=== PATIENT | female | born 1965 | race American Indian/Alaskan Native ===

== ENCOUNTER 2017-04-06 22:18 | Emergency (ER) | payer BC ==
[2017-04-06 22:49] VITALS: BMI 31.6
--- NOTE | 2017-04-06 23:32 | ED PDOC ---
Arrival/HPI - General Chief Complaint: Headache Time Seen by Provider: 04/06/17 22:41 Historian: Patient, Family - History of Present Illness Narrative History of Present Illness (Text): you were treated in the ED today for gradual onset, new type headache, with nausea intermittently for past 3 days but, and you were otherwise without any vomiting/fever/neck pain/dizziness/difficulty breathing/chest pain/abdomen pain/ numbness/tingling/loss of limb function/thoughts to harm yourself or others or hallucinations. 04/06/17 23:30 Time/Duration: Other (3 days) Symptom Course: Intermittent Quality: Aching Severity Level: 2 Activities at Onset: Rest Context: Sitting Past Medical History - Provider Review Nursing Documentation Reviewed: Yes - Travel History Have you recently traveled outside [place] w/in the past 3 mons?: No - Infectious Disease Hx of Infectious Diseases: None - Tetanus Immunization Tetanus Immunization: Unknown - Cardiac Hx Hypertension: Yes - Musculoskeletal/Rheumatological Hx Falls: No - Psychiatric Hx Substance Use: No - Past Surgical History Past Surgical History: No Previous - Anesthesia Hx Anesthesia: No - Suicidal Assessment Feels Threatened In Home Enviroment: No Family/Social History - Physician Review Nursing Documentation Reviewed: Yes Family/Social History: No Known Family HX Smoking Status: Never Smoked Hx Alcohol Use: No Hx Substance Use: No Hx Substance Use Treatment: No Allergies/Home Meds Allergies/Adverse Reactions: Allergies No Known Allergies Allergy (Verified 01/28/17 22:00) Review of Systems - Review of Systems Constitutional: Normal Eyes: Normal ENT: Normal Respiratory: Normal Cardiovascular: Normal Gastrointestinal: Normal Genitourinary Female: Normal Musculoskeletal: Normal Skin: Normal Neurological: Headache Endocrine: Normal Hemo/Lymphatic: Normal Psychiatric: Normal Physical Exam Vital Signs Reviewed: Yes Vital Signs Temp Pulse Resp BP Pulse Ox 04/06/17 23:37 98.3 F 77 18 140/97 H 100 Appearance: Positive for: Well-Appearing, Non-Toxic, Comfortable Pain Distress: None Mental Status: Positive for: Alert and Oriented X 3 - Systems Exam Head: Present: Atraumatic, Normocephalic Pupils: Present: PERRL Extroacular Muscles: Present: EOMI Conjunctiva: Present: Normal Ears: Present: Normal Mouth: Present: Moist Mucous Membranes Pharnyx: Present: Normal Nose (External): Present: Atraumatic Nose (Internal): Present: Normal Inspection Neck: Present: Normal Range of Motion Respiratory/Chest: Present: Clear to Auscultation, Good Air Exchange Cardiovascular: Present: Regular Rate and Rhythm Abdomen: No: Tenderness, Distention, Normal Bowel Sounds, Peritoneal Signs, Rebound, Guarding, McBurney's Point Tender, Rovsing's Sign Present, Hernias, Feeding Tubes, Ostomy Tubes, Mass/Organomegaly, Scars, Other Back: Present: Normal Inspection Upper Extremity: Present: Normal Inspection Lower Extremity: Present: Normal Inspection Neurological: Present: GCS=15, CN II-XII Intact, Speech Normal, Motor Func Grossly Intact Skin: Present: Warm, Normal Color Psychiatric: Present: Alert, Oriented x 3, Normal Insight, Normal Concentration Medical Decision Making ED Course and Treatment: you were treated in the ED today for gradual onset, new type headache, with nausea intermittently for past 3 days but, and you were otherwise without any vomiting/fever/neck pain/dizziness/difficulty breathing/chest pain/abdomen pain/ numbness/tingling/loss of limb function/thoughts to harm yourself or others or hallucinations. you were sitting up, comfortable, alert/oriented, good strength/ sensation, no abdomen tenderness, pink skin, no fever temp 98.3, stable heart rate 77, stable breathing rate 18, excellent oxygen level 100% room air, elevated blood pressure 140/97 which we recommend followup primary care 2-3 days repeat and determine further treatment, radiology ct head no acute findings , tylenol/zofran, observation done in the ED with improvement, counselled to monitor symptoms, and discharged home with family. 1. recommend followup primary care 1-2 days to determine further care, referral to neurology and neurosurgery clinic to review symptoms, ct head findings of few small lucent calvarial lesions to ensure no complications/cancer development. 2. if any worsening pain, fever, chills, nausea, vomiting, any medical condition then return to the ED. 04/06/17 23:32 EXAM: CT Head Without Intravenous Contrast Dictated and Authenticated by: Anish Crain, 04/07/2017 1:42 AM Eastern Time ([place] & [place]) IMPRESSION: 1. Nonspecific white matter changes. Acute infarction may be CT occult within first 24 hours. If a focal deficit persists, consider followup CT or MRI for further evaluation. 2. Incidental/non-acute findings are described above 04/07/17 01:59 - RAD Interpretation Radiology Orders: 04/06/17 23:17 HEAD W/O CONTRAST [CT] Stat Branch Or Department Chief Librarian: Radiologist - Medication Orders Current Medication Orders: Discontinued Medications Acetaminophen (Tylenol 325mg Tab) 975 mg PO STAT STA Stop: 04/06/17 23:17 Last Admin: 04/06/17 23:44 Dose: 975 mg MAR Pain/Vitals Document 04/06/17 23:44 SALINAS (Rec[facility]06[facility]17 23[facility]44 [id number] Pain Reassessment Is This A Pain ReAssessment? No Sleep Is patient sleeping during reassessment? No Presence of Pain Presence of Pain Yes Pain Scale Used Pain Scale Used Numeric Location Pain Location Body Marketing Communication Manager Intensity 5 Ondansetron HCl (Zofran Odt) 4 mg PO STAT STA Stop: 04/06/17 23:18 Last Admin: 04/06/17 23:44 Dose: 4 mg Disposition/Present on Arrival - Present on Arrival Any Indicators Present on Arrival: No History of DVT/PE: No History of Uncontrolled Diabetes: No Urinary Catheter: No History of Decub. Ulcer: No History Surgical Site Infection Following: None - Disposition Have Diagnosis and Disposition been Completed?: Yes Diagnosis: Head ache Disposition: HOME/ ROUTINE Disposition Time: 02:02 Patient Plan: Discharge Condition: IMPROVED Additional Instructions: you were treated in the ED today for gradual onset, new type headache, with nausea intermittently for past 3 days but, and you were otherwise without any vomiting/fever/neck pain/dizziness/difficulty breathing/chest pain/abdomen pain/ numbness/tingling/loss of limb function/thoughts to harm yourself or others or hallucinations. you were sitting up, comfortable, alert/oriented, good strength/ sensation, no abdomen tenderness, pink skin, no fever temp 98.3, stable heart rate 77, stable breathing rate 18, excellent oxygen level 100% room air, elevated blood pressure 140/97 which we recommend followup primary care 2-3 days repeat and determine further treatment, radiology ct head no acute findings , tylenol/zofran, observation done in the ED with improvement, counselled to monitor symptoms, and discharged home with family. 1. recommend followup primary care 1-2 days to determine further care, referral to neurology and neurosurgery clinic to review symptoms, ct head findings of few small lucent calvarial lesions to ensure no complications/cancer development. 2. if any worsening pain, fever, chills, nausea, vomiting, any medical condition then return to the ED. Referrals: Obie Sterling MD [Primary Care Provider] - Follow up with primary Forms: [employer] (Greek)
[2017-04-06 23:39] VITALS: TEMP 98.3
--- NOTE | 2017-04-07 01:43 | CT ---
EXAM: CT Head Without Intravenous Contrast CLINICAL HISTORY: 51 years old, female; Pain; Headache; Headache not specified; Additional info: 51yof, new type headache TECHNIQUE: Axial computed tomography images of the head/brain without intravenous contrast. All CT scans at this facility use one or more dose reduction techniques, viz.: automated exposure control; ma/kV adjustment per patient size (including targeted exams where dose is matched to indication; i.e. head); or iterative reconstruction technique. COMPARISON: No relevant prior studies available. FINDINGS: Brain: Mild atrophy. No intracranial hemorrhage. No mass. Few scattered subtle foci of decreased attenuation within periventricular/subcortical white matter. No definite edema. Ventricles: No hydrocephalus. Bones/joints: No acute fracture. Few small lucent calvarial lesions, nonspecific. Soft tissues: Unremarkable. Sinuses: No acute sinusitis. Mastoid air cells: No mastoid effusion. Orbits: Unremarkable as visualized. IMPRESSION: 1. Nonspecific white matter changes. Acute infarction may be CT occult within first 24 hours. If a focal deficit persists, consider followup CT or MRI for further evaluation. 2. Incidental/non-acute findings are described above.
[2017-04-07 02:26] VITALS: BP 128/77; PULSE 80; RESP 17; O2SAT 99
== END 2017-04-07 02:15 | disposition home or self-care (01) ==
LOC: ED 22:18
DX: R51 Headache (principal); I10 Essential (primary) hypertension